=== PATIENT | male | born 2000 | race Caucasian/White ===

== ENCOUNTER 2024-09-17 01:31 | Emergency (ER) | payer MEDICAID ==
[~2024-09-17] VITALS: Ht 170.2 cm; Wt 65.9 kg
[2024-09-17] MEDS ORDERED: NO HOME MEDS (01:44)
[2024-09-17 04:10] VITALS: BP 124/80; PULSE 84; RESP 16; TEMP 98; O2SAT 99
== END 2024-09-17 04:13 ==
LOC: ER 01:32
DX: Z02.89 Encounter for other administrative examinations (principal); F17.200 Nicotine dependence, unspecified, uncomplicated; V87.7XXA Person injured in collision between other specified motor vehicles (traffic), initial encounter; Y93.89 Activity, other specified; Y92.410 Unspecified street and highway as the place of occurrence of the external cause; Y99.8 Other external cause status
CPT/HCPCS: 99283